=== PATIENT | male | born 1950 | race Caucasian/White ===

== ENCOUNTER 2018-08-05 12:30 | Observation (INO) | payer OTHER ==
--- NOTE | 2018-08-05 13:08 | RAD REPORT ---
EXAM DESCRIPTION: RAD - Chest Single View - 08/05/2018 1:00 pm CLINICAL HISTORY: Chest pain, palpitation COMPARISON: March 2013 TECHNIQUE: AP portable chest image was obtained 1256 hours . FINDINGS: No peripheral mass or consolidation. Lung markings are prominent but not clearly different . No significant interstitial edema, infiltrate or volume overload finding. No diffuse pulmonary tera a. Heart and vasculature are normal. No measurable pleural effusion and no pneumothorax. No acute bon y abnormality seen. No acute aortic findings suspected. IMPRESSION: Interstitial markings are mildly prominent but not clearly different from comparison.
[2018-08-05 13:20] LABS: Absolute Monocytes 0.5 K/uL (0.1-1.3); Absolute Neutrophil 3.8 K/uL (1.8-8.0); Basophils % 0.9 % (0-1.3); Eosinophils % 1.6 % (0-4.4); Hematocrit 49.3 % (39.6-49.0); Lymphocytes % 31.5 % (15.3-44.8); MCH 33.9 pg (27.0-35.0); MCV 97.9 fL (80-100); MPV 9.1 fL (7.6-11.3); Monocytes % 7.2 % (3.3-12.3); RBC Red Blood Cell Count 5.03 M/uL (4.33-5.43)
[2018-08-05 13:40] LABS: Protime INR 1.05
[2018-08-05 13:41] LABS: ALT/SGPT 27 U/L (12-78); AST/SGOT 16 U/L (15-37); Albumin 3.8 g/dL (3.4-5.0); Alkaline Phosphatase 57 U/L (45-117); BUN Blood Urea Nitrogen 20 mg/dL (7-18); Bicarbonate 27 mmol/L (21-32); Bilirubin Total 0.6 mg/dL (0.2-1.0); Glucose Level 110 mg/dL (74-106); Magnesium 2.2 mg/dL (1.8-2.4); NT PRO-BNP 88 pg/mL (<125); Potassium 4.4 mmol/L (3.5-5.1); Protein, Total 7.2 g/dL (6.4-8.2); Sodium Level 140 mmol/L (136-145); Troponin (Emerg Dept Use Only) < 0.02 ng/mL (0.0-0.045)
--- NOTE | 2018-08-05 15:08 | ER ---
Nurse's Notes [facility] Name: Chucho Carrington Jr Age: 68 yrs Sex: Male : 1950 Arrival Date: 08/05/2018 Time: 12:35 Bed 30 Private MD: Diagnosis: Chest pain, unspecified Presentation: 08/05 12:35 Presenting complaint: Patient states: I had just finished eating and I started to get la1 palpitations with shoulder pain and sweating that lasted about 8 minutes and I felt very. states she palpated his pulse and it seemed irregular to her. Transition of care: patient was not received from another setting of care. Onset of symptoms was August 05, 2018. Risk Assessment: Do you want to hurt yourself or someone else? Patient reports no desire to harm self or others. Initial Sepsis Screen: Does the patient meet any 2 criteria? No. Patient's initial sepsis screen is negative. Does the patient have a suspected source of infection? No. Patient's initial sepsis screen is negative. Care prior to arrival: None. 12:35 Method Of Arrival: Wheelchair la1 12:35 Acuity: ANGELA 2 la1 Historical: - Allergies: 12:37 No Known Allergies; la1 - PMHx: 12:37 Hypertension; la1 - Immunization history:: Adult Immunizations up to date. - Social history:: Smoking status: Patient uses tobacco products, smokes one pack cigarettes per day. - Ebola Screening: : No symptoms or risks identified at this time. Screenin:55 Abuse screen: Denies threats or abuse. Denies injuries from another. Nutritional aj1 screening: No deficits noted. Tuberculosis screening: No symptoms or risk factors identified. Assessment: 12:55 General: Appears in no apparent distress. comfortable, Behavior is calm, cooperative, aj1 appropriate for age. Pain: Denies pain. Neuro: Level of Consciousness is awake, alert, obeys commands, Oriented to person, place, time, situation, Speech is normal, Facial symmetry appears normal, Reports dizziness, that has now resolved. Cardiovascular: Reports chest pain, diaphoresis, lightheadedness, palpitations, and pain to the left arm and shoulder that has now resolved Heart tones S1 S2 present Patient's skin is warm and dry. Rhythm is sinus rhythm. Respiratory: Reports cough that is chronic Airway is patent Respiratory effort is even, unlabored, Respiratory pattern is regular, symmetrical, Breath sounds are clear bilaterally. GI: No signs and/or symptoms were reported involving the gastrointestinal system. : No signs and/or symptoms were reported regarding the genitourinary system. EENT: No signs and/or symptoms were reported regarding the EENT system. Derm: No signs and/or symptoms reported regarding the dermatologic system. Skin is pink, warm \T\ dry. normal. Musculoskeletal: No signs and/or symptoms reported regarding the musculoskeletal system. Circulation, motion, and sensation intact. 13:55 Reassessment: Patient appears in no apparent distress at this time. No changes from aj1 previously documented assessment. Patient and/or family updated on plan of care and expected duration. Pain level reassessed. Patient is alert, oriented x 3, equal unlabored respirations, skin warm/dry/pink. 14:38 Reassessment: Patient appears in no apparent distress at this time. No changes from aj1 previously documented assessment. Patient and/or family updated on plan of care and expected duration. Pain level reassessed. Patient is alert, oriented x 3, equal unlabored respirations, skin warm/dry/pink. Patient denies pain at this time. 15:16 Reassessment: Patient and/or family updated on plan of care and expected duration. Pain tl3 level reassessed. Patient is alert, oriented x 3, equal unlabored respirations, skin warm/dry/pink. pt moved to room 30. Vital Signs: 12:37 BP 153 / 94; Pulse 75; Resp 16; Temp 98.6(O); Pulse Ox 98% on R/A; Weight 115.67 kg; la1 Height 6 ft. 3 in. (190.50 cm); 13:55 BP 117 / 85; Pulse 70; Resp 22; Pulse Ox 97% on R/A; aj1 14:38 BP 121 / 77; Pulse 66; Resp 18; Pulse Ox 99% on R/A; aj1 15:17 BP 123 / 76; Pulse 66; Resp 18; Pulse Ox 95% on R/A; tl3 12:37 Body Mass Index 31.87 (115.67 kg, 190.50 cm) la1 ED Course: 12:35 Patient arrived in ED. mr 12:37 Triage completed. la1 12:37 Arm band placed on right wrist. la1 12:39 Georges Munson MD is Attending Physician. ps1 12:55 Marie Pirde, RN is Primary Nurse. aj1 12:55 Patient has correct armband on for positive identification. Placed in gown. Bed in low aj1 position. Call light in reach. Side rails up X 1. chemical equipment repairer on. Pulse ox on. NIBP on. 12:55 No provider procedures requiring assistance completed. Initial lab(s) drawn, by ma, aj1 sent to lab. Inserted saline lock: 20 gauge in right antecubital area, using aseptic technique. Blood collected. 13:01 XRAY Chest (1 view) In Process Unspecified. EDMS 14:58 Report given to BRAD Gabriel. aj1 15:06 Tiffanie Ayala MD is Hospitalizing Provider. ps1 Administered Medications: No medications were administered Outcome: 15:08 Decision to Hospitalize by Provider. ps1 16:21 Patient left the ED. iw Signatures: Dispatcher [employer] EDWA Marie Pride, RN RN aj1 Altagracia Harry Irene, RN RN iw Nitish Metzger RN RN la1 Georges Munson MD MD ps1 Nery Colorado RN RN tl3
--- NOTE | 2018-08-05 15:08 | EDPHYS ---
Physician Documentation [facility] Name: Chucho Carrington Jr Age: 68 yrs Sex: Male : 1950 Arrival Date: 08/05/2018 Time: 12:35 Bed 30 Private MD: ED Physician Georges Munson Historical: - Allergies: 08/05 12:37 No Known Allergies; la1 - PMHx: 12:37 Hypertension; la1 - Immunization history:: Adult Immunizations up to date. - Social history:: Smoking status: Patient uses tobacco products, smokes one pack cigarettes per day. - Ebola Screening: : No symptoms or risks identified at this time. Vital Signs: 12:37 BP 153 / 94; Pulse 75; Resp 16; Temp 98.6(O); Pulse Ox 98% on R/A; Weight 115.67 kg; la1 Height 6 ft. 3 in. (190.50 cm); 13:55 BP 117 / 85; Pulse 70; Resp 22; Pulse Ox 97% on R/A; aj1 14:38 BP 121 / 77; Pulse 66; Resp 18; Pulse Ox 99% on R/A; aj1 15:17 BP 123 / 76; Pulse 66; Resp 18; Pulse Ox 95% on R/A; tl3 12:37 Body Mass Index 31.87 (115.67 kg, 190.50 cm) la1 MDM: 13:34 Patient medically screened. ps1 08/05 12:39 Order name: CBC with Diff; Complete Time: 13:34 ps1 08/05 12:39 Order name: Magnesium ps1 08/05 12:39 Order name: NT PRO-BNP ps1 08/05 12:39 Order name: PT-INR; Complete Time: 13:56 08/05 12:39 Order name: Troponin (emerg Dept Use Only) ps1 08/05 12:39 Order name: CMP ps1 08/05 12:39 Order name: XRAY Chest (1 view); Complete Time: 13:34 ps1 08/05 12:39 Order name: EKG; Complete Time: 12:40 08/05 12:39 Order name: Cardiac monitoring; Complete Time: 12:48 ps1 08/05 12:39 Order name: EKG - Nurse/Tech; Complete Time: 12:48 ps1 08/05 12:39 Order name: IV Saline Lock; Complete Time: 13:00 ps1 08/05 12:39 Order name: Labs collected and sent; Complete Time: 13:00 ps1 08/05 12:39 Order name: O2 Per Protocol; Complete Time: 12:48 ps1 08/05 12:39 Order name: O2 Sat Monitoring; Complete Time: 12:48 ps1 Administered Medications: No medications were administered Disposition: 08/05/18 15:08 Hospitalization ordered by Tiffanie Ayala for Observation. Preliminary diagnosis is Chest pain, unspecified. - Bed requested for Telemetry/MedSurg (observation). - Status is Observation. iw - Condition is Stable. - Problem is new. - Symptoms have improved. UTI on Admission? No Signatures: Dispatcher [employer] EDMS Celeste Hogue RN BRAD iw Nitish Metzger RN RN laCarly Orlando RN RN df Georges Munson MD MD ps1 Corrections: (The following items were deleted from the chart) 15:21 15:08 Hospitalization Ordered by Tiffanie Ayala MD for Observation. Preliminary df diagnosis is Chest pain, unspecified. Bed requested for Telemetry/MedSurg (observation). Status is Observation. Condition is Stable. Problem is new. Symptoms have improved. UTI on Admission? No. ps1 16:21 15:21 08/05/2018 15:08 Hospitalization Ordered by Tiffanie Ayala MD for Observation. iw Preliminary diagnosis is Chest pain, unspecified. Bed requested for Telemetry/MedSurg (observation). Status is Observation. Condition is Stable. Problem is new. Symptoms have improved. UTI on Admission? No. df
[2018-08-05] MEDS ORDERED: ACETAMINOPHEN 500 MG TAB PO PRN (16:37)
[2018-08-05] MEDS ORDERED: ONDANSETRON 4 MG/2 ML VIAL IV PRN (16:37)
[2018-08-05] MEDS ORDERED: ALBUTEROL 2.5 MG/3 ML NEB SOL NEB PRN (16:37)
[2018-08-05 17:08] VITALS: BMI 31.5
[2018-08-05] MEDS: ENOXAPARIN 40 MG/0.4 ML SQ SCH (18:37)
[2018-08-05 20:23] LABS: CKMB Creatine Kinase MB 2.3 ng/mL (0.3-3.6); Creatine Phosphokinase 113 U/L (39-308); Troponin I < 0.02 ng/mL (0.0-0.045)
--- NOTE | 2018-08-06 04:11 | HP ---
Date of Admission: 08/05/2018 Entrance Complaint: Midepigastric lower chest pain. History Of Present Illness: The patient states he was fine when he got up this morning. He was fini shing eating lunch when he had a sudden onset of rather severe discomfort in the mid-epigastric area, broke out into a sweat, was not short of breath. However, he also complained of some pain going luis n his left upper arm. This lasted a few minutes and he came to the emergency room for further evalua tion and was admitted for further testing. The patient does state he has had a couple episodes not n early severe without diaphoresis and arm pain over the past few months. In general he has been in [facility]. He had a stress test about 10 years ago, which was negative. Otherwise, has no c ardiological disease. Past History: As above. The patient has history of hyperlipidemia and hypertension which have been under good control. No prior GI problems. Family History: Strong history of CAD. Social History: The patient does smoke. No alcohol. Physical Examination: General: Patient is a comfortable appearing elderly male. Vital Signs: Stable. Head and Neck: Normocephalic. Pupils are equal, reactive to light and accommodation. Fundi negative . Trachea midline. Thyroid not palpable. ENT: Negative. Chest: Clear to P and A. Cardiovascular: PMI in midclavicular line. Heart sounds normal. Peripher al pulses are present and equal bilaterally. Abdomen: Minimal tenderness in the epigastric area. No guarding, rebound, tenderness, or rigidity. Bowel sounds present. Extremities: Good tone and movement bilaterally. Reflexes physiologic. Rectal: Deferred. Impression: Chest pain, atypical, possible pylorospasm and/or gallbladder disease. Hypertension con trolled. Hyperlipidemia controlled. Plan: The patient will be admitted. A cardiac workup will take place. I feel the past history is o f somewhat similar episode, however, much more emphatic symptomatology this time with a strong family history and probably should have a stress test. Associated with this will be a GI workup including abdominal ultrasound while in the hospital. His original cardiac enzyme was normal. This will be mon itored. HR/MODL Voice ID: [id number]
[2018-08-06 04:19] LABS: Absolute Lymphocytes (CBC) 2.6 K/uL (0.7-4.9); Absolute Monocytes 0.7 K/uL (0.1-1.3); Absolute Neutrophil 3.8 K/uL (1.8-8.0); Basophils % 1.1 % (0-1.3); Eosinophils % 1.8 % (0-4.4); Lymphocytes % 35.7 % (15.3-44.8); MCH 34.3 pg (27.0-35.0); MCV 97.3 fL (80-100); MPV 9.3 fL (7.6-11.3); RBC Red Blood Cell Count 4.73 M/uL (4.33-5.43)
[2018-08-06 04:29] LABS: Albumin 3.2 g/dL (3.4-5.0); Bilirubin Direct 0.2 mg/dL (0-0.2); Bilirubin Total 0.8 mg/dL (0.2-1.0); Potassium 4.3 mmol/L (3.5-5.1); Protein, Total 6.2 g/dL (6.4-8.2)
--- NOTE | 2018-08-06 04:42 | EKG ---
Test Date: 2018-08-05 Test Time: 12:42:44 Senior Business Broker: [place] MEASUREMENT RESULTS: Intervals: Rate: 75 NH: 188 QRSD: 94 QT: 382 QTc: 426 [place]: P: 51 NH: 188 QRS: -30 T: 38 INTERPRETIVE STATEMENTS: Normal sinus rhythm Left axis deviation Abnormal ECG No previous ECG available for comparison Electronically Signed On 08-06-18 04:41:40 CDT by Arley Mendez
[2018-08-06 05:12] LABS: CKMB Creatine Kinase MB 2.1 ng/mL (0.3-3.6); Creatine Phosphokinase 107 U/L (39-308); Troponin I < 0.02 ng/mL (0.0-0.045)
--- NOTE | 2018-08-06 08:36 | RAD REPORT ---
EXAM DESCRIPTION: US - Abdomen Exam Complete - 08/06/2018 7:25 am CLINICAL HISTORY: Abdominal pain FINDINGS: The liver has an increased echotexture. 5 millimeter echogenic structure is present within the gallbladder body. The gallbladder wall is not thickened. The biliary tree is normal caliber. The pancreas was not well visualized secondary overlying bowel gas but appears grossly normal. The right kidney measures 12 centimeters with a normal echotexture. A 6.1 centimeter cyst is present. 3.1 centimeter complex cyst is seen. The left kidney measures 13 centimeters with a normal echotexture. 6.4 centimeter cyst is present. 3. 2 centimeter complex cyst is seen. 5.5 centimeter hypoechoic mass extends off of the left kidney. The spleen measures 13 centimeters. The abdominal aorta is ectatic with an AP diameter of 2.7 centimeters. The Inferior vena cava appear unremarkable IMPRESSION: A 5.5 centimeter hypoechoic mass extends off of left kidney. This may represent a benign complex cyst or solid mass. It is recommended that the patient have a CT scan with and without IV co ntrast of kidneys for further evaluation. Mild splenomegaly 5 millimeter echogenic structure within the gallbladder may represent a polyp or stone which did not shadow secondary to technical factors
[2018-08-06] MEDS ORDERED: ASPIRIN EC 325 MG TABLET PO SCH (09:00)
[2018-08-06] MEDS ORDERED: ATENOLOL 25 MG TAB PO SCH (09:00)
[2018-08-06] MEDS ORDERED: RAMIPRIL 5 MG CAP PO SCH (09:00)
[2018-08-06] MEDS ORDERED: ATORVASTATIN 10 MG TAB PO SCH (09:00)
[2018-08-06] MEDS: ENOXAPARIN 40 MG/0.4 ML SQ SCH (09:00)
[2018-08-06 09:30] VITALS: O2SAT 97
[2018-08-06 12:26] VITALS: BP 117/72; TEMP 97.8
--- NOTE | 2018-08-06 12:57 | CON ---
History Of Present Illness: Mr. Carrington came to the hospital because right after eating, he started f eeling his heart beating irregularly. There was some discomfort in his left shoulder and some sweati ng. He did not have chest pain according to me. It resolved in 15 minutes. They came to the ER. B y the time they got to the ER, all symptoms had resolved. Since he has been in the hospital, EKGs ar e normal and cardiac enzymes are normal and he has had no symptoms. He has been monitored overnight. He has only had sinus rhythm. Past Medical History: His past history is negative for myocardial infarction, stroke, diabetes, arrh ythmia. He does have hypertension, and he takes atorvastatin. Allergies: HE HAS NO ALLERGIES. Social History: He uses tobacco regularly. He is aware that it is healthier if he quits. Physical Examination: HEENT: Unremarkable. Neck: No carotid bruit. Lungs: Clear. Heart: Normal. Abdomen: Soft. Extremities: Normal. No cyanosis, clubbing, or edema. Distal pulses normal and palpable. Laboratory Data: EKG normal. Impression: The patient may have had a transient atrial fibrillation. I do not think he needs to st ay in the hospital any longer. Ultrasound of the abdomen has been done, has not been reported out as of yet. I think the patient needs to do an event monitor to see if he has atrial fibrillation. Tiffanie brantley if the gallbladder ultrasound shows gallstones, I would argue against doing [facility] since it is not an emergency and we have several questions about his heart. As an outpatient, he will wear an event monitor and do a pharmacologic nuclear stress wil alfonzo LE Voice ID: [id number] Report ID: [id number]
--- NOTE | 2018-08-08 01:29 | PN ---
Date of Progress Note: 08/06/2018 The patient feels fine when seen by Cardiology who felt the workup including a stress test nuclear an d an event monitor could be instituted as an outpatient basis. The patient states he has been told h e had a lesion of his kidney in the past and we attempted to obtain those records to see if it was so lid or cystic and gallbladder stone will be observed depending on his symptoms. He was therefore adv ised some dietary control, and he was discharged to follow up with Cardiology and myself in good cond ition. HR/MODL Voice ID: [id number] Report ID: [id number]
== END 2018-08-06 15:24 | disposition home or self-care (01) ==
LOC: ER 12:30 → 4TH 16:28
PROVIDERS: ADMIT Family Medicine; ATTEND Family Medicine
DX: R07.89 Other chest pain (principal); I10 Essential (primary) hypertension; E78.5 Hyperlipidemia, unspecified
CPT/HCPCS: 36415; 71045; 76700; 80053 ×2; 80061; 82150; 82248; 82550 ×2; 82553 ×2; 83690; 83735; 83880; 84100; 84484 ×3; 85025 ×2; 85610; 93005; 94760 ×3; 99284; G0378 ×2; J1650